=== PATIENT | female | born 1980 | race Caucasian/White ===

== ENCOUNTER 2024-06-18 11:25 | Emergency (ER) | payer OTHER ==
[2024-06-18] MEDS ORDERED: HYDROcodone/Acetaminophen 10/325 mg Tablet ONE (12:08)
== END 2024-06-18 12:46 | disposition home or self-care (01) ==
LOC: MADERS 11:25
DX: S00.12XA Contusion of left eyelid and periocular area, initial encounter (principal); I10 Essential (primary) hypertension; W18.2XXA Fall in (into) shower or empty bathtub, initial encounter
CPT/HCPCS: 70450; 70486